=== PATIENT | male | born 1955 | race Caucasian/White ===

== ENCOUNTER → 2016-12-06 | Outpatient (CLI) | payer BC | LOC: RAD 13:00 → VAS 17:14 | DX: I35.1 Nonrheumatic aortic (valve) insufficiency (principal) ==

== ENCOUNTER → 2016-12-10 | Outpatient (CLI) | payer BC | LOC: CARDREHAB 08:50 | DX: I35.1 Nonrheumatic aortic (valve) insufficiency (principal) | CPT/HCPCS: A9500 ==

== ENCOUNTER → 2019-03-12 | Day surgery (SDC) | payer BC | LOC: MSO 07:21 | DX: Z12.11 Encounter for screening for malignant neoplasm of colon (principal); D12.3 Benign neoplasm of transverse colon; I10 Essential (primary) hypertension; G47.33 Obstructive sleep apnea (adult) (pediatric); K21.9 Gastro-esophageal reflux disease without esophagitis; E11.9 Type 2 diabetes mellitus without complications; Z80.0 Family history of malignant neoplasm of digestive organs; Z86.010 Personal history of colon polyps | CPT/HCPCS: 00811; J2704; J7030 ==

== ENCOUNTER → 2020-11-14 | Outpatient (CLI) | payer BC | LOC: RAD 07:58 | DX: I08.8 Other rheumatic multiple valve diseases (principal) ==

== ENCOUNTER → 2022-11-22 | Day surgery (SDC) | payer BC | END | disposition home or self-care (01) | LOC: MSO 12:08 | DX: Z12.11 Encounter for screening for malignant neoplasm of colon (principal); D12.5 Benign neoplasm of sigmoid colon; K57.30 Diverticulosis of large intestine without perforation or abscess without bleeding | CPT/HCPCS: 00811; J2704; J7120 ==

== ENCOUNTER 2023-02-09 09:00 | Outpatient (RCR) | payer BC | END 2023-02-20 | LOC: PT | DX: M54.50 Low back pain, unspecified (principal) ==

== ENCOUNTER 2023-02-22 08:00 | Outpatient (RCR) | payer BC | END 2023-03-23 | disposition home or self-care (01) | LOC: PT | DX: M54.50 Low back pain, unspecified (principal) ==

== ENCOUNTER 2023-03-28 08:00 | Outpatient (RCR) | payer BC | END 2023-04-21 | disposition home or self-care (01) | LOC: PT | DX: M54.50 Low back pain, unspecified (principal) ==